=== PATIENT | female | born 1985 | race Hispanic/Latino ===

== ENCOUNTER 2017-02-28 20:48 | Emergency (ER) | payer MEDICAID, OTHER ==
[2017-02-28 21:16] VITALS: BMI 23.3
[2017-02-28 21:21] VITALS: BP 104/70; PULSE 72; RESP 20; TEMP 97.7; O2SAT 100
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
== END 2017-02-28 22:35 | disposition home or self-care (01) ==
LOC: C.ER 20:48
DX: S00.83XA Contusion of other part of head, initial encounter (principal); Y09 Assault by unspecified means